=== PATIENT | male | born 1985 | race Caucasian/White ===

== ENCOUNTER 2019-11-13 13:36 | Emergency (ER) | payer SELFPAY ==
[2019-11-13 14:19] VITALS: BP 128/76; PULSE 63; RESP 16; TEMP 36.5; O2SAT 99; BMI 23.0
--- NOTE | 2019-11-13 15:23 | XR_ITS ---
WS: [id number] XR lumbar spine 2-3V* [id number] REASON FOR EXAM: injury FINDINGS: 5 functional lumbar vertebra as are noted. The disc spaces and vertebral bodies are normal. The lumbosacral angle was normal. Lamina, pedicles, spinous processes, and transverse processes are all normal. XR/XR lumbar spine 2-3V* [id number] IMPRESSION: Normal lumbar spine series.
--- NOTE | 2019-11-13 15:23 | XR_ITS ---
WS: [id number] XR thoracic spine 3V* [id number] REASON FOR EXAM: injury FINDINGS: The disc spaces and vertebral bodies are normal. There is no fractures or compression changes seen. No visible rib fractures are seen. XR/XR thoracic spine 3V* [id number] IMPRESSION: No definite fractures of the thoracic spine.
--- NOTE | 2019-11-13 15:23 | XR_ITS ---
WS: [id number] XR chest 1V portable [id number] REASON FOR EXAM: injury FINDINGS: The heart and mediastinal interfaces were normal. The lung ceja are well aerated no pneumothorax, pleural effusion, pulmonary edema, or contusions. The ribs show no gross fractures and the one view. The hilum and apices are normal. XR/XR chest 1V portable [id number] IMPRESSION: Negative chest
[2019-11-13 15:26] VITALS: BP 133/89; PULSE 106; RESP 18; TEMP 36.8; O2SAT 98
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
[2019-11-13] MEDS: HYDROcodone-acetaminophen 7.5-325 mg Tablet 1 TAB PO (15:45)
[2019-11-13 16:29] VITALS: BP 133/89; PULSE 106; RESP 18; TEMP 36.7; O2SAT 98
== END 2019-11-13 16:30 | disposition home or self-care (01) ==
PROVIDERS: Emergency Provider Nurse Practitioner Family; Family Provider Nurse Practitioner Family; PCP Nurse Practitioner Family
DX: T14.8XXA Other injury of unspecified body region, initial encounter (principal); M54.9 Dorsalgia, unspecified; F17.200 Nicotine dependence, unspecified, uncomplicated; V58.2XXA Person on outside of pick-up truck or van injured in noncollision transport accident in nontraffic accident, initial encounter
CPT/HCPCS: 71045; 72072; 72100; 99281; 99283

== ENCOUNTER → 2020-01-23 10:00 | Outpatient (BNVA) | payer SELFPAY | PROVIDERS: Family Provider Nurse Practitioner Family; PCP Nurse Practitioner Family; Visit Provider Nurse Practitioner | DX: R07.89 Other chest pain (principal) | CPT/HCPCS: 80053; 81000; 85025 ==

== ENCOUNTER 2020-07-29 22:51 | Emergency (ER) | payer SELFPAY ==
[2020-07-29 22:58] VITALS: BP 153/96; PULSE 110; RESP 18; TEMP 36.5; O2SAT 95; BMI 24.3
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
--- NOTE | 2020-07-29 23:11 | XR_ITS ---
WS: [id number] XR chest 1V portable [id number] REASON FOR EXAM: trauma FINDINGS: The heart and mediastinum are within normal limits. No active pulmonary parenchymal or pleural disease is identified. The bony thorax is intact. XR/XR chest 1V portable [id number] IMPRESSION: No acute chest abnormality.
--- NOTE | 2020-07-29 23:11 | XR_ITS ---
WS: [id number] XR shoulder RT min 2V* [id number] REASON FOR EXAM: trauma FINDINGS: Normal alignment of the acromioclavicular joint. Normal alignment of the glenohumeral joint. No fracture identified. No soft tissue abnormality noted. XR/XR shoulder RT min 2V* [id number] IMPRESSION: No acute abnormality identified.
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
[2020-07-29 23:44] LABS: Basophils % 0.2 %; Eosinophils # 0.1 10^3/uL (0.0-0.8); Eosinophils % 1.8 %; Hematocrit 41.7 % (42.0-52.0); Lymphocytes # 1.8 10^3/uL (0.8-4.8); Lymphocytes % 26.7 %; Mean Corpuscular HGB Conc 33.6 g/dL (30.0-36.0); Mean Corpuscular Hemoglobin 29.3 pg (28.0-34.0); Mean Corpuscular Volume 87.2 fL (80-94); Mean Platelet Volume 10.5 fL (7.4-10.4); Monocytes # 0.6 10^3/uL (0.2-0.9); Monocytes % 8.8 %; Neutrophils # 4.09 10^3/uL (1.8-7.7); Neutrophils % 62.3 %; Nucleated Red Blood Cells % 0 %; Platelet Count 217 10^3/cmm (130-400); Red Blood Count 4.78 10^6/uL (4.1-5.3); Red Cell Distribution Width 12.6 % (12.1-15.1); White Blood Count 6.6 10^3/uL (4.0-10.0)
[2020-07-29 23:55] LABS: Alanine Aminotransferase 18 U/L (0-41); Albumin Level 4.5 g/dL (3.5-5.2); Alkaline Phosphatase 73 IU/L (40-130); Anion Gap 13.8 (5-19); Aspartate Amino Transferase 24 U/L (0-40); Blood Urea Nitrogen 15 mg/dL (6-20); Calcium 9.4 mg/dL (8.5-10.5); Carbon Dioxide 26 mmol/L (22-29); Chloride 101 mmol/L (98-107); Globulin 2.8 g/dL (1.3-4.6); Glomerular Filtration Rate 96.6 mL/min (90-130); Glucose 153 mg/dL (65-115); Osmolality Calculated 288 mOsm/kg (285-295); Potassium 3.8 mmol/L (3.5-5.1); Sodium 137 mmol/L (136-145); Total Bilirubin 0.2 mg/dL (0.15-1.2); Total Protein 7.3 g/dL (6.6-8.7)
[2020-07-30 00:03] VITALS: BP 139/95; PULSE 72; O2SAT 97
[2020-07-30 00:48] VITALS: BP 139/95; PULSE 75; RESP 16; O2SAT 96
[2020-07-30 00:58] VITALS: BP 139/95; PULSE 75; O2SAT 95
== END 2020-07-30 00:59 | disposition home or self-care (01) ==
PROVIDERS: Emergency Provider Nurse Practitioner Family; PCP Nurse Practitioner Family
DX: S01.01XA Laceration without foreign body of scalp, initial encounter (principal); W22.8XXA Striking against or struck by other objects, initial encounter; F17.210 Nicotine dependence, cigarettes, uncomplicated
CPT/HCPCS: 12345; 70450; 71045; 72125; 72128; 73030; 80053; 85025; 99283

== ENCOUNTER 2020-08-01 19:11 | Emergency (ER) | payer SELFPAY ==
[2020-08-01 19:42] VITALS: BP 137/65; PULSE 82; RESP 18; TEMP 36.2; O2SAT 99; BMI 23.7
--- NOTE | 2020-08-01 20:24 | XRR_ITS ---
PROCEDURE INFORMATION: Exam: XR Chest, 1 View Exam date and time: 08/01/2020 8:58 PM Age: 35 years old Clinical indication: Shortness of breath; Additional info: Short of breath TECHNIQUE: Imaging protocol: XR of the chest Views: 1 view. COMPARISON: CR XR chest 1V portable [id number] 07/29/2020 11:13 PM FINDINGS: Lungs: Unremarkable. No consolidation. Pleural space: Unremarkable. No pleural effusion. No pneumothorax. Heart/Mediastinum: Unremarkable. No cardiomegaly. Bones/joints: Unremarkable. XR/XR chest 1V portable [id number] IMPRESSION: No acute findings.
--- NOTE | 2020-08-01 20:58 | ED_ITS ---
HPI - COVID General: Chief Complaint: COVID symptoms Stated Complaint: head injury Time Seen by Provider: 08/01/20 20:57 Source: patient Mode of arrival: ambulatory Limitations: no limitations Triage information: Has fever, cough or shortness of breath . No known COVID + exposure last 14 days History of Present Illness: HPI Narrative: 35-year-old male patient comes in with cough and shortness of breath. Patient states he feels like he cannot catch his breath. Patient appears well. Patient appears no acute distress. Patient is breathing without difficulty. Patient is able speak full sentences. Patient states exposure to COVID-19. COVID 19 common symptoms: positive dyspnea COVID Results: SARS-CoV-2 Antigen (Rapid) Negative (Negative) 08/01/20 21:20 08/01/20 Review of Systems General: Reports: 10 or more systems reviewed and unremarkable except in HPI and below Resp: Reports: dyspnea [facility] ED PFSH: Medical History (Updated 08/01/20 @ 22:06 by BRET Dee) Anxiety and depression Carpal tunnel syndrome, bilateral History of MRSA infection Nerve pain Surgical History (Updated 02/04/20 @ 23:30 by MARION Faust) History of appendectomy Family History Other Diabetes Heart disease Stroke Social History Smoking and tobacco status: current every day smoker Alcohol intake: never Lives independently: Yes Household members: spouse Housing: House Marital status: History of recent travel: No Physical Exam Const: COMMON NORMALS: no acute distress and patient oriented x3 GENERAL APPEARANCE: cooperative HENMT: COMMON NORMALS: normocephalic and Normal external nose present HEAD & SCALP: normal to inspection and normocephalic NOSE: Normal external nose present MOUTH: Normal oral and palatal mucosa present Eye: GENERAL EYE: appearance normal, both eyes and all related structures Neck/C-Spine: COMMON NORMALS: full ROM Chest: COMMONS NORMALS: normal inspection of the chest Resp: COMMON NORMALS: normal respiratory effort EFFORT & INSPECTION: Yes able to speak in complete sentences Cardio: COMMON NORMALS: regular rate and regular rhythm RATE: regular rate RHYTHM: regular rhythm GI: COMMON NORMALS: non-tender : COMMON NORMALS: Yes no CVA tenderness BLADDER/KIDNEY EXAM: Yes no CVA tenderness Back/Pelvis: COMMON NORMALS: no CVA tenderness and thoracic and lumbar spine normal to inspection Extremity: COMMON NORMALS: normal to inspection Neuro: COMMON NORMALS: patient oriented x3 and moves all extremities Psych: COMMON NORMALS: mental status grossly normal and cooperative Skin: NARRATIVE SKIN EXAM: Healing abrasion to the skin occiput of the scalp, and the upper mid back. Course Vital Signs: Vital signs: Vital Signs Temperature 97.2 F L 08/01/20 19:42 Pulse Rate 68 08/01/20 21:00 Respiratory Rate 24 H 08/01/20 21:00 Blood Pressure 123/80 08/01/20 21:00 Pulse Oximetry 94 08/01/20 21:00 MDM - COVID MDM Narrative Medical decision making narrative: Patient comes in with complaints of chest congestion and cough and concern for COVID-19. Patient reports he gets a feeling where he is short of breath at times. Patient appears well. Patient appears no acute distress. Lungs have good air movement throughout. Differential diagnosis includes COVID-19 infection, acute bronchitis, pneumonia. Chest x-ray noted no pneumonia. COVID-19 test was negative. Feel the patient probably has acute bronchitis we will go ahead and treat with azithromycin and dexamethasone. Patient will follow up with further treatment and evaluation as needed. Patient reported understanding. Lab Data Labs: Lab Results 08/01/20 Range/Units 21:20 SARS-CoV-2 Ag (Rapid) Negative (Negative) COVID Results: SARS-CoV-2 Antigen (Rapid) Negative (Negative) 08/01/20 21:20 08/01/20 Discharge Plan Discharge Patient Disposition: Home Clinical Impression: Bronchitis Condition: Stable Prescriptions: New dexamethasone 2 mg tablet 2 mg PO DAILY Qty: 4 RF: 0 azithromycin 250 mg tablet 250 mg PO DAILY 4 Days Qty: 4 RF: 0 No Action fluoxetine [Prozac] 10 mg capsule 10 mg PO DAILY 30 Days Qty: 30 RF: 2 buprenorphine HCl 8 mg tablet, sublingual 8 mg SUBLINGUAL TID RF: 0 gabapentin 600 mg tablet 300 mg PO TID RF: 0 Discharge Orders: Discharge Order (Routine); Ordered 08/01/20 Ordered By: Basim Guerra Discharge Diet: Usual diet Discharge Activity: Increase activity as tolerated Patient Instructions: Acute Bronchitis (ED) Activity Restrictions/Additional Instructions: Take medications as directed. Drink plenty of fluids. Use acetaminophen and ibuprofen for pain and discomfort. Follow-up with primary care in 1 week for recheck. Return to the emergency department for new concerns. Stand Alone Forms: Work/School Release Coding Level of Care Code ED Curing Press Operator for Edilia Fwjessee Exam Comprehensive
[2020-08-01 21:00] VITALS: BP 123/80; PULSE 68; RESP 24; O2SAT 94
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
[2020-08-01 21:34] VITALS: BP 114/78; PULSE 54; RESP 18; TEMP 37.1; O2SAT 98
[2020-08-01 21:54] LABS: SARS Covid-2 Antigen Negative (Negative)
[2020-08-01] MEDS: azithromycin 250 mg Tablet 500 MG PO (22:24)
[2020-08-01] MEDS: dexamethasone 4 mg Tablet 8 MG PO (22:24)
[2020-08-01 22:27] VITALS: BP 114/78; PULSE 54; RESP 18; O2SAT 98
== END 2020-08-01 22:30 | disposition home or self-care (01) ==
PROVIDERS: Emergency Provider Nurse Practitioner Family
DX: J40 Bronchitis, not specified as acute or chronic (principal); F17.210 Nicotine dependence, cigarettes, uncomplicated
CPT/HCPCS: 12345; 71045; 87426; 99282; 99283; J8540; Q0144

== ENCOUNTER 2020-11-07 12:25 | Outpatient (CLI) | payer SELFPAY ==
[2020-11-07 12:40] VITALS: BMI 24.1
--- NOTE | 2020-11-07 12:45 | USCV_ITS ---
Jessee Lynch Age: 35 Gender: M : 1985 Exam Date: 11/07/2020 12:04 Ordering Phys: Charmaine Gasca MD ([email or web address]) Technologist: Georgina Torres [place] [facility] [place]: Other chest pain BP: 128 / 70 HR: 84 Rhythm: Sinus Technical Quality: Adequate MEASUREMENTS (Male / Female) Normal Values 2D ECHO LV Diastolic Diameter PLAX 3.8 cm 4.2 - 5.9 / 3.9 - 5.3 cm LV Systolic Diameter PLAX 2.3 cm LV Chamber Size 3.9 cm IVS Diastolic Thickness 1.0 cm 0.6 - 1.0 / 0.6 - 0.9 cm IVS Systolic Thickness 1.6 cm LVPW Diastolic Thickness 2.2 cm 0.6 - 1.0 / 0.6 - 0.9 cm LVPW Systolic Thickness 1.7 cm RV Chamber Size 3.6 cm LVOT Diameter 2.1 cm LV Ejection Fraction 2D Teich 73.1 % LV Ejection Fraction MOD 2C 47.2 % LV Ejection Fraction 2C AL 45.0 % LA Diameter 2.9 cm LA Width 2.2 cm LA Height 4.0 cm RA Width 2.7 cm RA Height 4.3 cm Aorta at Sinotubular Diameter 3.2 cm M-MODE LV Diastolic Diameter MM 5.2 cm 4.2 - 5.9 / 3.9 - 5.3 cm LV Systolic Diameter MM 3.8 cm LV Ejection Fraction MM Teich 54.0 % IVS Diastolic Thickness MM 0.6 cm 0.6 - 1.0 / 0.6 - 0.9 cm IVS Systolic Thickness MM 1.1 cm LVPW Diastolic Thickness MM 0.9 cm 0.6 - 1.0 / 0.6 - 0.9 cm LVPW Systolic Thickness MM 1.2 cm Aortic Annulus Diameter 3.2 cm LA Ao Ratio MM 1.0 MV E Point Septal Separation 0.5 cm DOPPLER AV Peak Velocity 127.0 cm/s LVOT Peak Velocity 101.0 cm/s AV Area Cont Eq vti 3.1 cm squared AV Area Cont Eq pk 2.7 cm squared MV Area PHT 3.3 cm squared Mitral E to A Ratio 1.7 MV E' Velocity 53.0 cm/s Mitral E to MV E' Ratio 4.4 Mitral E to LV E' Lateral Ratio 4.2 Mitral E to LV E' Septal Ratio 4.7 TR Peak Velocity 220.5 cm/s TR Peak Gradient 19.4 mmHg TV Peak E Velocity 87.0 cm/s Right Atrial Pressure 3.0 mmHg Pulmonary Artery Systolic Pressu 22.4 mmHg PV Peak Velocity 81.0 cm/s RV Acceleration Time 0.2 s RV Ejection Time 0.4 s RV AcT/ET 0.6 FINDINGS Left Ventricle Normal left ventricular size and systolic function, EF 63 %. No regional wall motion abnormalities. Right Ventricle Normal right ventricular size and systolic function. Right Atrium Normal chamber size with no intracardiac masses. Left Atrium The left atrium is normal in size. Mitral Valve No gross abnormalities noted . Aortic Valve Patient be tricuspid with no gross abnormalities Tricuspid Valve No gross abnormalities noted Pulmonic Valve Structurally normal pulmonic valve without significant stenosis. There is no pulmonic regurgitation. Pericardium Normal pericardium without effusion. Aorta Normal ascending aorta dimension. CONCLUSIONS Normal left ventricular size and systolic function, EF 63 %. No regional wall motion abnormalities. Normal cardiac chamber sizes. No intracardiac shunts, based on color flow Doppler examination. No gross valvular abnormalities noted. No intracardiac masses No significant pericardial effusion No previous study is available for comparison. Dr Charmaine Gasca MD FAC (Electronically Signed) Final Date: 07 November 2020 14:09 S
[2020-11-07 13:15] VITALS: BP 186/87; PULSE 95
--- NOTE | 2020-11-07 13:45 | ECG_ITS ---
[facility] Test Date: 2020-11-07 Pat Name: Jessee Lynch Department: Room: Gender: Male Assurance Manager: : 1985 Requested By: Charmaine Gasca Order Number: [id number] Dannie MD: Charmaine Gasca M.D. Interpretive Statements NAME OF STUDY: TREADMILL STRESS TEST INDICATION: Chest Pain, PROCEDURE: At the baseline, the patient's blood pressure was 134/86 with a heart rate of 81. The baseline electrocardiogram showed normal sinus rhythm with normal ST-Ts. No acute ST-T changes.. The patient exercised for 11 minutes on a standard Ihsan protocol. Patient attained a maximum heart rate of 160 beats per minute( 86 % of the maximum predicted heart rate) with a blood pressure at the peak exercise of 217/65 mm Hg. The EKG at the peak exercise revealed no significant changes. Patient did not have any chest pain or any significant cardiac arrhythmias with the exercise During the recovery phase, there were no new changes. Blood pressure at the end of the recovery phase was 186/87 mm Hg with a heart rate of 96 per minute. CONCLUSION: 1. Normal EKG response to treadmill exercise 2. No exercise-induced chest pain or cardiac arrhythmia 3. Good exercise tolerance , attained a maximum of 13.5 METs Electronically Signed On 11-09-2020 15:12:16 VENDING STAND SUPERVISOR by Charmaine Gasca M.D. [id number]
== END 2020-11-07 12:26 | disposition home or self-care (01) ==
LOC: CDL 12:28
PROVIDERS: PCP Nurse Practitioner; Visit Provider Internal Medicine Cardiovascular Disease
DX: R07.89 Other chest pain (principal)
CPT/HCPCS: 93017; 93306

== ENCOUNTER 2021-04-21 20:35 | Emergency (ER) | payer SELFPAY | END 2021-04-21 21:50 | LOC: ER 21:37 | PROVIDERS: Emergency Provider Family Medicine; PCP Nurse Practitioner | DX: Z53.21 Procedure and treatment not carried out due to patient leaving prior to being seen by health care provider (principal) | CPT/HCPCS: 80053; 81000; 85025 ==

== ENCOUNTER 2021-04-22 09:50 | Outpatient (CLI) | payer SELFPAY ==
--- NOTE | 2021-04-22 09:30 | US_ITS ---
WS: [id number] ULTRASOUND ABDOMEN LIMITED CLINICAL INFORMATION: Z87.428 - Personal history of other specified conditions COMPARISON: None. FINDINGS: Liver Size: Normal. Craniocaudal length: 15.1 cm. Echogenicity: Normal. Surface nodularity: None. Mass (size and location): None. Bile ducts Intrahepatic ducts: Normal. Common bile duct diameter: 0.4 cm. Gallbladder Normal. Gallstones: None. Gallbladder sludge: None. Gallbladder wall thickening: None. Pericholecystic fluid: None. Sonographic Daley sign: Absent. Pancreas Normal as visualized. Right kidney: Normal. Hydronephrosis: None. Size: 10.4 cm x 4.4 cm x 4.2 cm. Abdominal aorta and IVC Visualized portions are normal. Ascites: None. US/US abdomen limited [id number] IMPRESSION: Normal abdominal ultrasound
== END 2021-04-22 09:51 | disposition home or self-care (01) ==
LOC: RAD 09:53
PROVIDERS: Visit Provider Nurse Practitioner Family
DX: Z87.898 Personal history of other specified conditions (principal)
CPT/HCPCS: 76705

== ENCOUNTER 2021-04-22 10:54 | Emergency (ER) | payer SELFPAY ==
[2021-04-22 12:21] VITALS: BP 155/113; PULSE 98; RESP 16; TEMP 36.9; O2SAT 96; BMI 23.7
[2021-04-22 12:21] LABS: Basophils % 0.2 %; Eosinophils # 0.1 10^3/uL (0.0-0.8); Eosinophils % 0.7 %; Hematocrit 46.1 % (42.0-52.0); Hemoglobin 15.8 g/dL (11.7-16.6); Lymphocytes # 3.7 10^3/uL (0.8-4.8); Lymphocytes % 26.9 %; Mean Corpuscular HGB Conc 34.3 g/dL (30.0-36.0); Mean Corpuscular Hemoglobin 29.6 pg (28.0-34.0); Mean Corpuscular Volume 86.3 fL (80-94); Mean Platelet Volume 10.7 fL (7.4-10.4); Monocytes # 1.2 10^3/uL (0.2-0.9); Monocytes % 8.8 %; Neutrophils # 8.64 10^3/uL (1.8-7.7); Nucleated Red Blood Cells % 0 %; Platelet Count 248 10^3/cmm (130-400); Red Blood Count 5.34 10^6/uL (4.1-5.3); Red Cell Distribution Width 12.2 % (12.1-15.1); White Blood Count 13.7 10^3/uL (4.0-10.0)
[2021-04-22 12:30] LABS: Alanine Aminotransferase 15 U/L (0-41); Albumin Level 4.8 g/dL (3.5-5.2); Alkaline Phosphatase 73 IU/L (40-130); Anion Gap 12.7 (5-19); Aspartate Amino Transferase 13 U/L (0-40); Blood Urea Nitrogen 11 mg/dL (6-20); Calcium 8.8 mg/dL (8.5-10.5); Carbon Dioxide 29 mmol/L (22-29); Chloride 100 mmol/L (98-107); Globulin 2.4 g/dL (1.3-4.6); Glucose 100 mg/dL (65-115); Lipase 22 U/L (13-60); Osmolality Calculated 285 mOsm/kg (285-295); Potassium 3.7 mmol/L (3.5-5.1); Sodium 138 mmol/L (136-145); Total Bilirubin 0.5 mg/dL (0.15-1.2); Total Protein 7.2 g/dL (6.6-8.7)
== END 2021-04-22 17:26 | disposition left against medical advice (07) ==
LOC: ER 11:39
PROVIDERS: Physician Assistant; Emergency Provider Family Medicine
DX: R10.11 Right upper quadrant pain (principal); R19.5 Other fecal abnormalities; Z53.21 Procedure and treatment not carried out due to patient leaving prior to being seen by health care provider
CPT/HCPCS: 36415; 80053; 83690; 85025

== ENCOUNTER → 2021-04-23 13:49 | Outpatient (BNVA) | payer SELFPAY | PROVIDERS: Visit Provider Surgery | DX: Z20.822 Contact with and (suspected) exposure to COVID-19 (principal); R10.9 Unspecified abdominal pain | CPT/HCPCS: 87635 ==

== ENCOUNTER → 2021-04-28 07:57 | Outpatient (BNVA) | payer SELFPAY | PROVIDERS: Visit Provider Nurse Practitioner Family | DX: K92.1 Melena (principal) | CPT/HCPCS: 82272 ==

== ENCOUNTER 2021-04-30 09:10 | Day surgery (SDC) | payer SELFPAY ==
--- NOTE | 2021-04-30 09:22 | ANES.PREANE2 ---
Pre-Anesthetic Assessment Pre-Anesthetic Assessment: Height/Weight: Height 1.8 m Weight 77.111 kg Preop Diagnosis: abdominal pian Proposed Procedure: Operation Date: 04/30/21 10:30 Proposed Procedures p EGD 19766 r10.9(Not Applicable) - Jesus Pacheco MD Familial anesthetic complications: none Last intake: > 8 hrs Social: Social History: Tobacco and No alcohol Exam: Pre-Anes Outpt Exam: alert, oriented x 3, clear to auscultation bilaterally and regular rate & rhythm Airway: Cervical ROM: WNL MP: 2 Dentition: Other (no teeth) CV/HEM: Comments: chest pain - negative stress test CONCLUSIONS Normal left ventricular size and systolic function, EF 63 %. No regional wall motion abnormalities. Normal cardiac chamber sizes. No intracardiac shunts, based on color flow Doppler examination. No gross valvular abnormalities noted. No intracardiac masses No significant pericardial effusion No previous study is available for comparison. Neuropsych: Neuropsych: Anxiety (severe - took klonopin yesterday) Comments: recently stopped subutex a few weeks ago Anesthetic Plan: ASA status: 2 Anesthesia: MAC Risk of > 500 ml blood loss (7ml/kg in children): No PFSH Anesthesia PFSH: Medical History Anxiety and depression Carpal tunnel syndrome, bilateral History of MRSA infection Nerve pain Pericardial effusion Surgical History History of appendectomy Family History Grandfather CAD (coronary artery disease) Lung disease TB Grandmother CAD (coronary artery disease) Diabetes Stroke Cancer Dementia Family/Other CAD (coronary artery disease) Other Heart disease Denies family history of Clotting disorder Chronic kidney disease (CKD) Suicide Anesthesia complication Bleeding disorder Social History Smoking and tobacco status: current every day smoker Alcohol intake: never Lives independently: Yes Household members: spouse Housing: House Marital status: History of recent travel: No Data Anesthesia Cardiac Studies: No Data to Display
[2021-04-30 09:42] VITALS: BP 138/33; PULSE 74; RESP 18; TEMP 37.1; O2SAT 98
[2021-04-30] MEDS: sodium chloride 0.9% 1,000 ML 30 ML IV (10:04)
--- NOTE | 2021-04-30 10:58 | W.PM.OPSUD ---
Surgery/Procedure H&P Update DATE OF PROCEDURE: April 30, 2021 DATE H&P PERFORMED: 04/23/21 H&P UPDATE INFORMATION: I have reviewed H&P completed within last 30 days, I have examined patient prior to procedure and No changes to prior documentation PREOP DIAGNOSIS: Black stool PRIMARY INDICATION FOR PROCEDURE: The same PLANNED PROCEDURE: Operation Date: 04/30/21 10:30 Proposed Procedures p EGD 25298 r10.9(Not Applicable) - Jesus Pacheco MD
[2021-04-30 11:17] VITALS: BP 113/75; PULSE 80; RESP 16; TEMP 36.3; O2SAT 94
[2021-04-30 11:41] VITALS: BP 133/99; PULSE 69; RESP 16; TEMP 36.8; O2SAT 98
--- NOTE | 2021-04-30 15:00 | ANE.PACU2 ---
Inpatient post-anesthesia follow up: Airway intact: Yes Vital signs: Temperature 98.2 F Pulse Rate 69 Respiratory Rate 16 Blood Pressure 133/99 Pulse Oximetry 98 Oxygen Delivery Me thod Room Air Oxygen Flow Rate 2 Fraction of Inspir ed Oxygen Nausea and vomiting: No Pain level: 1 Mental status: Baseline
[2021-05-01 06:49] LABS: H. Pylori / CLO Test Negative
== END 2021-04-30 11:55 | disposition home or self-care (01) ==
PROVIDERS: Visit Provider Surgery
PROC: 0DJ08ZZ Inspection of Upper Intestinal Tract, Via Natural or Artificial Opening Endoscopic (ICD-10-PCS; CPT 43235; principal; 2021-04-30 10:30)
DX: R10.9 Unspecified abdominal pain (principal); R19.5 Other fecal abnormalities; K29.70 Gastritis, unspecified, without bleeding; F41.9 Anxiety disorder, unspecified; Z86.14 Personal history of Methicillin resistant Staphylococcus aureus infection; Z82.49 Family history of ischemic heart disease and other diseases of the circulatory system; Z83.3 Family history of diabetes mellitus; F17.210 Nicotine dependence, cigarettes, uncomplicated
CPT/HCPCS: 43239; 87077; 96360; 96361; J2250; J2704; J7030

== ENCOUNTER → 2022-04-06 14:01 | Outpatient (BNVA) | payer SELFPAY | PROVIDERS: Visit Provider Nurse Practitioner Family | DX: R10.11 Right upper quadrant pain (principal); G89.29 Other chronic pain; F19.11 Other psychoactive substance abuse, in remission; R10.819 Abdominal tenderness, unspecified site | CPT/HCPCS: 80053; 81000; 85025 ==

== ENCOUNTER → 2022-11-26 10:58 | Outpatient (BNVA) | payer SELFPAY | PROVIDERS: Visit Provider Nurse Practitioner | DX: R53.83 Other fatigue (principal); E55.9 Vitamin D deficiency, unspecified; Z86.19 Personal history of other infectious and parasitic diseases | CPT/HCPCS: 80053; 82306; 82607; 84403; 84443; 85025; 85651; 86003; 86008; 86140 ==

== ENCOUNTER 2023-10-06 10:28 | Emergency (ER) | payer MEDICAID, SELFPAY ==
--- NOTE | 2023-10-06 10:33 | ECG_ITS ---
[facility] Test Date: 2023-10-06 Pat Name: Jessee Lynch Department: Room: Gender: Male Township Supervisor: : 1985 Requested By: Jesús Haney Order Number: [id number] Dannie MD: Charmaine Gasca M.D. Measurements Intervals [place] Rate: 73 P: 76 CA: 166 QRS: 90 QRSD: 92 T: 61 QT: 382 QTc: 423 Interpretive Statements SINUS RHYTHM WITH SINUS ARRHYTHMIA POSSIBLE LEFT ATRIAL ENLARGEMENT [-0.1mV P-WAVE IN V1/V2] Compared to ECG 02/01/2019 11:14:43 No significant changes Electronically Signed On 10-06-2023 21:48:41 COMPUTER FORWARDING SYSTEM MARKUP CLERK by Charmaine Gasca M.D. [id number]
[2023-10-06 10:34] VITALS: BP 138/94; PULSE 78; RESP 16; TEMP 36.4; O2SAT 98; BMI 23.0
--- NOTE | 2023-10-06 10:42 | XRR_ITS ---
PROCEDURE INFORMATION: Exam: XR Chest Exam date and time: 10/06/2023 11:04 AM Age: 38 years old Clinical indication: Cough and dyspnea; Additional info: Dyspnea/cough TECHNIQUE: Imaging protocol: Radiologic exam of the chest. Views: 1 view. COMPARISON: CR XR chest 1V portable [id number] 08/01/2020 8:52 PM FINDINGS: Lungs: No focal consolidation. Pleural spaces: No pleural effusion. No pneumothorax. Heart/Mediastinum: No cardiomegaly. Bones/joints: No acute findings. XR/XR chest 1V portable [id number] IMPRESSION: No acute findings.
--- NOTE | 2023-10-06 10:43 | ED_ITS ---
HPI - Chest Pain 2 General: Chief Complaint: Chest Pain Stated Complaint: sob, chest pain Time Seen by Provider: 10/06/23 10:30 Source: patient Mode of arrival: ambulatory History of Present Illness: 38-year-old male presents emergency room with complaint of chest pain. Intermittently had this for a year. Seems to be more epigastric pain radiating up into his chest. Has been seen for this before by other doctors she has had previous ER visits no significant findings. He did have a workup for gallbladder which was evidently negative. MD complaint: chest pain Onset (ago): year(s) (1) Timing of current episode: episodic Prior episodes: Yes Onset: during rest Pain location: left chest Pain radiation: none Severity: mild Quality: tightness and aching Relieving factors: nothing Exacerbating factors: nothing Associated symptoms: Reports abdominal pain; Deny diaphoresis, dyspnea, fever(s), leg edema, nausea, palpitations, sense of impending doom, syncope or vomiting Review of Systems 2 Const: Denies: fever(s), chills or diaphoresis Card: Reports: chest pain; Denies: palpitations or syncope Resp: Denies: dyspnea GI: Reports: abdominal pain; Denies: nausea or vomiting : Denies: dysuria, urinary frequency or urinary urgency Musc: Denies: neck pain or back pain Skin/Breast: Denies: rash PFSH ED 2 PFSH: Medical History History of tick-borne relapsing fever Pericardial effusion History of MRSA infection Carpal tunnel syndrome, bilateral Nerve pain Anxiety and depression Surgical History History of appendectomy Family History Grandfather CAD (coronary artery disease) Lung disease TB Grandmother CAD (coronary artery disease) Diabetes Stroke Cancer Dementia Family/Other CAD (coronary artery disease) Other Heart disease Denies family history of Clotting disorder Chronic kidney disease (CKD) Suicide Anesthesia complication Bleeding disorder Social History Smoking and tobacco/nicotine status: former use of tobacco/nicotine Second hand smoke exposure: No Alcohol intake: unknown Substance/Drug Use: unknown Adopted: No Caregiver/support person: No Lives independently: Yes Household members: spouse Housing: House Marital status: service: No Do you think of yourself as: Straight/Heterosexual Current gender identity: Male Physical Exam 2 Const: COMMON NORMALS: no acute distress GENERAL APPEARANCE: cooperative and comfortable ORIENTATION/CONSCIOUSNESS: Yes awake, Yes oriented to person, Yes oriented to place and Yes oriented to time HENMT: COMMON NORMALS: normocephalic, atraumatic and hearing grossly normal bilaterally HEAD & SCALP: normocephalic and atraumatic Resp: COMMON NORMALS: normal respiratory effort, No retractions, No use of accessory muscles and clear to auscultation bilaterally AUSCULTATION: clear to auscultation bilaterally Cardio: COMMON NORMALS: regular rate, regular rhythm and No murmurs present (Cardio) RATE: regular rate RHYTHM: regular rhythm GI: COMMON NORMALS: Soft to palpation and No hepatosplenomegaly present A USCULTATION: Yes normoactive bowel sounds PALPATION: Yes Soft to palpation, No Tenderness to palpation present (GI), No Guarding due to palpation present (GI) and Yes No hepatosplenomegaly present Extremity: COMMON NORMALS: normal to inspection, capillary refill normal, no clubbing, cyanosis or edema, no calf tenderness and no pedal edema Neuro: SENSORIUM/ORIENTATION: Yes oriented to person, Yes oriented to place and Yes oriented to time Skin: COMMON NORMALS: no rashes or lesions noted GENERAL SKIN EXAM: no rashes or lesions noted Course 2 Vital Signs: Vital signs: Vital Signs Temperature 97.6 F 10/06/23 10:34 Pulse Rate 78 10/06/23 10:34 Respiratory Rate 16 10/06/23 10:34 Blood Pressure 138/94 10/06/23 10:34 Pulse Oximetry 98 10/06/23 10:34 MDM - Chest Pain Medical Decision Making Labs imaging and EKG reviewed no acute changes on EKG. Troponin normal he said this. For an extended period of time recommend mended start on proton pump inhibitor Protonix 40 mg twice daily for 10 days then daily after that follow-up with his primary care doctor return if is further problems. Medical Records I reviewed the patient's medical records. Lab Data I reviewed the patient's lab results. 10/06/23 10:55 10/06/23 10:55 Laboratory Results WBC 8.92 10^3/uL (3.29-11.43) 10/06/23 10:55 RBC 5.16 10^6/uL (3.85-5.65) 10/06/23 10:55 Hgb 15.90 g/dL (11.27-16.99) 10/06/23 10:55 Hct 45.7 % (37-53) 10/06/23 10:55 MCV 88.6 fl (82-101) 10/06/23 10:55 MCH 30.8 pg (27-33) 10/06/23 10:55 MCHC 34.8 g/dL (30-55) 10/06/23 10:55 RDW 12.1 % (12.1-15.1) 10/06/23 10:55 Plt Count 213 10^3/cmm (157-399) 10/06/23 10:55 MPV 10.2 fL (7.4-10.4) 10/06/23 10:55 Neut % (Auto) 72.3 % 10/06/23 10:55 Lymph % (Auto) 18.9 % 10/06/23 10:55 [place] % (Auto) 6.7 % 10/06/23 10:55 Eos % (Auto) 1.6 % 10/06/23 10:55 Baso % (Auto) 0.2 % 10/06/23 10:55 Neut # (Auto) 6.44 10^3/uL (1.8-7.7) 10/06/23 10:55 Lymph # (Auto) 1.7 10^3/uL (0.8-4.8) 10/06/23 10:55 [place] # (Auto) 0.6 10^3/uL (0.2-0.9) 10/06/23 10:55 Eos # (Auto) 0.1 10^3/uL (0.0-0.8) 10/06/23 10:55 Baso # (Auto) 0.0 10^3/uL (0.0-0.1) 10/06/23 10:55 Nucleated RBC % (auto) 0 % 10/06/23 10:55 Nucleated RBCs # 0.0 /100WBC 10/06/23 10:55 Sodium 141 mmol/L (136-145) 10/06/23 10:55 Potassium 4.2 mmol/L (3.5-5.1) 10/06/23 10:55 Chloride 103 mmol/L (98-107) 10/06/23 10:55 Carbon Dioxide 29 mmol/L (22-29) 10/06/23 10:55 Anion Gap 13.2 (5-19) 10/06/23 10:55 BUN 13 mg/dL (6-20) 10/06/23 10:55 Creatinine 1.0 mg/dL (0.7-1.2) 10/06/23 10:55 GFR Calculation 84.1 mL/min (90-130) L 10/06/23 10:55 Glucose 119 mg/dL (65-115) H 10/06/23 10:55 Calculated Osmolality 293 mOsm/kg (285-295) 10/06/23 10:55 Calcium 9.5 mg/dL (8.5-10.5) 10/06/23 10:55 Total Bilirubin 0.7 mg/dL (0.15-1.2) 10/06/23 10:55 AST 23 U/L (0-40) 10/06/23 10:55 ALT 35 U/L (0-41) 10/06/23 10:55 Alkaline Phosphatase 56 U/L (40-130) 10/06/23 10:55 Troponin T Baseline < 6 ng/L (0-15) 10/06/23 10:55 Total Protein 7.3 g/dL (6.6-8.7) 10/06/23 10:55 Albumin 4.8 g/dL (3.5-5.2) 10/06/23 10:55 Globulin 2.5 g/dL (1.3-4.6) 10/06/23 10:55 Lipase 27 U/L (13-60) 10/06/23 10:55 All radiology interpretation(s) finalized by discharge Discharge Plan Discharge Patient Disposition: Home Clinical Impression: Gastroesophageal reflux disease Condition: Stable Prescriptions: New Protonix 40 mg tablet,delayed release (DR/EC) 40 mg PO BID 10 Days Qty: 40 0RF Rx Instructions: Twice daily x 10 days then daily No Action buprenorphine HCl 8 mg tablet, sublingual 8 mg SUBLINGUAL Q7D BC Pain Relief 845-65 mg Powder In Packet 1 ea PO DAILY PRN (Reason: Migraine Headache) Discharge Orders: Discharge ED (Routine); Ordered 10/06/23 Ordered By: Jesús Mayers Discharge Diet: As Directed Patient Instructions: Diet for Stomach Ulcers and Gastritis (ED), GERD (Gastroesophageal Reflux Disease) (ED), Opioid Safety, Pain Management Coding Level of Care Code ED Pantry Worker for Edilia Wall
[2023-10-06 11:08] LABS: Basophils % 0.2 %; Eosinophils # 0.1 10^3/uL (0.0-0.8); Eosinophils % 1.6 %; Hematocrit 45.7 % (37-53); Lymphocytes # 1.7 10^3/uL (0.8-4.8); Lymphocytes % 18.9 %; Mean Corpuscular HGB Conc 34.8 g/dL (30-55); Mean Corpuscular Hemoglobin 30.8 pg (27-33); Mean Corpuscular Volume 88.6 fl (82-101); Mean Platelet Volume 10.2 fL (7.4-10.4); Monocytes # 0.6 10^3/uL (0.2-0.9); Monocytes % 6.7 %; Neutrophils # 6.44 10^3/uL (1.8-7.7); Neutrophils % 72.3 %; Nucleated Red Blood Cells % 0 %; Platelet Count 213 10^3/cmm (157-399); Red Blood Count 5.16 10^6/uL (3.85-5.65); Red Cell Distribution Width 12.1 % (12.1-15.1); White Blood Count 8.92 10^3/uL (3.29-11.43)
--- NOTE | 2023-10-06 11:10 | PC.PHAR ---
pt states he takes care of his own medications-pt states he uses his wifes buprenorphine 8mg about once a week states it got to expensive for both of them to be on it so he just uses hers once a week-pt states he no longer takes cymbalta 20mg daily rx filled 07/08/23 30d/s states has but never took-pt states the venlafaxine 50mg bid written 12/16/22 was dced-pt states he hasnt had his testosterone cypionate 200mg/ml [id number] since july states he feels like it wasnt working anymore-
[2023-10-06 11:24] LABS: Alanine Aminotransferase 35 U/L (0-41); Albumin Level 4.8 g/dL (3.5-5.2); Alkaline Phosphatase 56 U/L (40-130); Anion Gap 13.2 (5-19); Aspartate Amino Transferase 23 U/L (0-40); Blood Urea Nitrogen 13 mg/dL (6-20); Calcium 9.5 mg/dL (8.5-10.5); Carbon Dioxide 29 mmol/L (22-29); Chloride 103 mmol/L (98-107); Globulin 2.5 g/dL (1.3-4.6); Glomerular Filtration Rate 84.1 mL/min (90-130); Glucose 119 mg/dL (65-115); Lipase 27 U/L (13-60); Osmolality Calculated 293 mOsm/kg (285-295); Potassium 4.2 mmol/L (3.5-5.1); Sodium 141 mmol/L (136-145); Total Bilirubin 0.7 mg/dL (0.15-1.2); Total Protein 7.3 g/dL (6.6-8.7)
[2023-10-06 11:27] LABS: Troponin(5th) Baseline < 6 ng/L (0-15)
== END 2023-10-06 12:30 | disposition home or self-care (01) ==
PROVIDERS: Emergency Provider Family Medicine
DX: K21.9 Gastro-esophageal reflux disease without esophagitis (principal); Z87.891 Personal history of nicotine dependence
CPT/HCPCS: 71045; 80053; 83690; 84484; 85025; 93005; 99285

== ENCOUNTER 2023-10-31 08:09 | Outpatient (CLI) | payer MEDICAID, SELFPAY ==
--- NOTE | 2023-10-31 08:13 | US_ITS ---
WS: [id number] ABDOMINAL ULTRASOUND LIMITED REASON FOR VISIT: RUQ PAIN TECHNIQUE: Grayscale and Doppler ultrasound examination of the abdomen. FINDINGS: Pancreas: No pancreatic mass or pancreatic calcification. No dilatation of the pancreatic duct. Abdominal aorta and IVC: Normal caliber. Liver: Liver measures 13.2 cm in length. Normal echogenicity and no focal lesion. Normal portal venou s blood flow. Gallbladder: Gallbladder wall thickness measures 0.2 mm. No calculi. Right kidney: Right kidney measures 9.8 cm x 4.8 cm x 5.3 cm. Right kidney cortex measures 1.0 cm. No mass, calculus, or hydronephrosis. Normal blood flow. No ascites. IMPRESSION: No significant abnormality.
== END 2023-10-31 08:10 | disposition home or self-care (01) ==
LOC: RAD 08:09
PROVIDERS: Visit Provider Internal Medicine
DX: R10.11 Right upper quadrant pain (principal)
CPT/HCPCS: 76705

== ENCOUNTER → 2023-11-11 11:00 | Outpatient (BNVA) | payer MEDICAID, SELFPAY | PROVIDERS: Visit Provider Nurse Practitioner Family | DX: R10.9 Unspecified abdominal pain (principal); G89.29 Other chronic pain; R33.9 Retention of urine, unspecified; R79.89 Other specified abnormal findings of blood chemistry; M25.50 Pain in unspecified joint; K59.00 Constipation, unspecified | CPT/HCPCS: 80053; 80074; 82040; 83036; 84153; 84270; 84403; 84443; 85025; 85651; 86140; 86160; 86162; 86235; 86255; 86376; 86431; 87806 ==

== ENCOUNTER 2023-12-01 15:39 | Outpatient (CLI) | payer MEDICAID, SELFPAY ==
--- NOTE | 2023-12-01 16:00 | CT_ITS ---
WS: [id number] CT ABDOMEN AND PELVIS WITH CONTRAST HISTORY: R10.9 - Unspecified abdominal pain TECHNIQUE: Imaging performed of the abdomen and pelvis with IV contrast. Single phase imaging of the abdomen. Coronal and sagittal reformats are submitted. All CT scans at [facility] use at [address] one of these dose optimization techniques: automated exposure control; mA and/or kV adjustment per patient size (includes targeted exams where dose is matched to clinical indication); or iterative re construction. IV CONTRAST: Omnipaque 350; 100 mL IV. Oral contrast: Yes. DLP: 359.48 mGy.cm COMPARISON: None available. Lower thorax: Lung bases are clear. Heart is normal size. Small hiatal hernia. Liver/biliary system: Small to characterize hypodensity LEFT lobe of the liver. Otherwise negative. N ormal portal vein. Gallbladder: Moderately contracted gallbladder. No adjacent inflammation. Pancreas: Normal size pancreas and pancreatic duct. No adjacent inflammation. Spleen: Normal size spleen. No mass or infarct. Adrenal glands: Normal. Right kidney: Normal. Left kidney: Normal. Aorta: Normal. Lymphadenopathy: None. Free fluid: None. GI tract: Normal stomach. No small bowel obstruction. Prior appendectomy. Moderate diffuse constipati on and obstipation. No obstruction or mass identified. Abdominal wall: Unremarkable abdominal wall. No hernia. Pelvis: No free fluid or adenopathy within the pelvis. Bones: Unremarkable. IMPRESSION: 1. Moderate constipation and obstipation. No obstruction. 2. Prior appendectomy. 3. No adenopathy. 4. Normal spleen.
[2023-12-01] MEDS: iohexol 350 mg/mL 500 mL Btl (per mL) PO (16:40)
[2023-12-01] MEDS: iohexol 350 mg/mL 500 mL Btl (per mL) IV (16:57)
== END 2023-12-01 15:40 | disposition home or self-care (01) ==
LOC: RAD 15:40
PROVIDERS: PCP Nurse Practitioner Family; Visit Provider Nurse Practitioner Family
DX: K59.00 Constipation, unspecified (principal); R33.9 Retention of urine, unspecified
CPT/HCPCS: 74177; Q9967

== ENCOUNTER 2024-03-04 21:08 | Emergency (ER) | payer MEDICAID, SELFPAY ==
[2024-03-04 21:12] VITALS: BP 160/100; PULSE 71; RESP 16; TEMP 36.6; O2SAT 100; BMI 23.7
--- NOTE | 2024-03-04 21:17 | CTR_ITS ---
PROCEDURE INFORMATION: Exam: CT Head Without Contrast Exam date and time: 03/04/2024 10:03 PM Age: 39 years old Clinical indication: Pain; Headache; Patient HX: C/O occipital HEADLEY. ; Additional info: Head ache TECHNIQUE: Imaging protocol: Computed tomography of the head without contrast. Radiation optimization: All CT scans at this facility use at least one of these dose optimization techniques: automated exposure control; mA and/or kV adjustment per patient size (includes targeted exams where dose is matched to clinical indication); or iterative reconstruction. COMPARISON: CT head wo con* [id number] 07/30/2020 12:10 AM RADIATION DOSE METRICS: Total DLP (mGy-cm): 1053.98 FINDINGS: Brain: Normal. No hemorrhage. Unremarkable white matter. No mass effect. Cerebral ventricles: No ventriculomegaly. Paranasal sinuses: Visualized sinuses are unremarkable. No fluid levels. Mastoid air cells: Visualized mastoid air cells are well aerated. Bones: Unremarkable. No acute fracture. Soft tissues: Unremarkable. CT/CT head wo con* [id number] IMPRESSION: No acute intracranial abnormality.
[2024-03-04 21:52] LABS: Basophils % 0.5 %; Eosinophils # 0.3 10^3/uL (0.0-0.8); Eosinophils % 4.2 %; Hematocrit 44.9 % (37-53); Lymphocytes # 2.4 10^3/uL (0.8-4.8); Lymphocytes % 36.9 %; Mean Corpuscular HGB Conc 35.2 g/dL (30-55); Mean Corpuscular Hemoglobin 30.9 pg (27-33); Mean Corpuscular Volume 87.9 fl (82-101); Mean Platelet Volume 10.3 fL (7.4-10.4); Monocytes # 0.5 10^3/uL (0.2-0.9); Monocytes % 7.3 %; Neutrophils # 3.29 10^3/uL (1.8-7.7); Neutrophils % 50.9 %; Nucleated Red Blood Cells % 0 %; Platelet Count 237 10^3/cmm (157-399); Red Blood Count 5.11 10^6/uL (3.85-5.65); Red Cell Distribution Width 12.5 % (12.1-15.1); White Blood Count 6.45 10^3/uL (3.29-11.43)
--- NOTE | 2024-03-04 22:03 | ED_ITS ---
HPI - Headache 2 General: Chief Complaint: Headache Stated Complaint: Pressure in back of head vision blurry now Time Seen by Provider: 03/04/24 21:16 History of Present Illness: 39-year-old male patient comes in today with complaints of occipital headache. Patient reports recent diagnosis for alpha gal. Patient appears nontoxic. Patient has a history of substance use disorder which he reports being 5 years clean at this time. Patient has been on buprenorphine before. Patient has a history of alpha gal, substance use disorder, GERD, and fever. Review of Systems 2 General: Reports: 10 or more systems reviewed and unremarkable except in HPI and below Neuro: Reports: headache(s) PFSH ED 2 PFSH: Medical History History of tick-borne relapsing fever Pericardial effusion History of MRSA infection Carpal tunnel syndrome, bilateral Nerve pain Anxiety and depression Surgical History History of appendectomy Family History Grandfather CAD (coronary artery disease) Lung disease TB Grandmother CAD (coronary artery disease) Diabetes Stroke Cancer Dementia Family/Other CAD (coronary artery disease) Other Heart disease Denies family history of Clotting disorder Chronic kidney disease (CKD) Suicide Anesthesia complication Bleeding disorder Social History Smoking and tobacco/nicotine status: former use of tobacco/nicotine Second hand smoke exposure: No Alcohol intake: unknown Substance/Drug Use: unknown Adopted: No Caregiver/support person: No Lives independently: Yes Household members: spouse Housing: House Marital status: service: No Do you think of yourself as: Straight/Heterosexual Current gender identity: Male Physical Exam 2 Const: COMMON NORMALS: alert HENMT: COMMON NORMALS: normocephalic HEAD & SCALP: normocephalic Neck/C-Spine: COMMON NORMALS: full ROM Resp: COMMON NORMALS: normal respiratory effort and clear to auscultation bilaterally AUSCULTATION: clear to auscultation bilaterally Cardio: COMMON NORMALS: regular rate and regular rhythm RATE: regular rate RHYTHM: regular rhythm GI: COMMON NORMALS: Soft to palpation and non-tender PALPATION: Yes Soft to palpation Back/Pelvis: COMMON NORMALS: thoracic and lumbar spine normal to inspection Extremity: COMMON NORMALS: normal to inspection Neuro: SENSORIUM/ORIENTATION: Yes alert Skin: COMMON NORMALS: turgor normal GENERAL SKIN EXAM: turgor normal Course 2 Vital Signs: Vital signs: Vital Signs Temperature 98 F 03/04/24 21:12 Pulse Rate 52 L 03/04/24 22:18 Respiratory Rate 16 03/04/24 22:18 Blood Pressure 135/96 03/04/24 22:18 Pulse Oximetry 98 03/04/24 22:18 Oxygen Delivery Me thod Room Air 03/04/24 22:18 MDM - Headache Medical Decision Making 31-year-old male patient comes in today for complaints of feeling fatigued and having a headache. Patient reports the headache is new for the last 3 to 4 days. Patient reports some fatigue for about 1 year. Patient appears nontoxic. Patient has a recent diagnosis of alpha gal. Patient also reports recently he has been scanned and has abdomen which was normal except for some constipation at the time. Patient sees Dr. Feng. On exam skin is warm and dry color is pink. Respirations are even. Bowel sounds are present throughout. No edema is noted. Differential diagnosis includes malingering, tick fever, anxiety about health, intracranial mass, intracranial hemorrhage, migraine headache. 2300, patient reports resolution of headache. CBC CMP was normal. CT of the head was normal. I do not have really any signs of significant illness of the patient today. I recommend patient follow-up with his primary care further evaluation of his fatigue and malaise. Patient agreed with plan and need for follow-up. Lab Data 03/04/24 21:40 03/04/24 21:[address] 03/04/24 21:17 IMPRESSION: No acute intracranial abnormality. Laboratory Results WBC 6.45 10^3/uL (3.29-11.43) 03/04/24 21:40 RBC 5.11 10^6/uL (3.85-5.65) 03/04/24 21:40 Hgb 15.80 g/dL (11.27-16.99) 03/04/24 21:40 Hct 44.9 % (37-53) 03/04/24 21:40 MCV 87.9 fl (82-101) 03/04/24 21:40 MCH 30.9 pg (27-33) 03/04/24 21:40 MCHC 35.2 g/dL (30-55) 03/04/24 21:40 RDW 12.5 % (12.1-15.1) 03/04/24 21:40 Plt Count 237 10^3/cmm (157-399) 03/04/24 21:40 MPV 10.3 fL (7.4-10.4) 03/04/24 21:40 Neut % (Auto) 50.9 % 03/04/24 21:40 Lymph % (Auto) 36.9 % 03/04/24 21:40 [place] % (Auto) 7.3 % 03/04/24 21:40 Eos % (Auto) 4.2 % 03/04/24 21:40 Baso % (Auto) 0.5 % 03/04/24 21:40 Neut # (Auto) 3.29 10^3/uL (1.8-7.7) 03/04/24 21:40 Lymph # (Auto) 2.4 10^3/uL (0.8-4.8) 03/04/24 21:40 [place] # (Auto) 0.5 10^3/uL (0.2-0.9) 03/04/24 21:40 Eos # (Auto) 0.3 10^3/uL (0.0-0.8) 03/04/24 21:40 Baso # (Auto) 0.0 10^3/uL (0.0-0.1) 03/04/24 21:40 Nucleated RBC % (auto) 0 % 03/04/24 21:40 Nucleated RBCs # 0.0 /100WBC 03/04/24 21:40 Sodium 141 mmol/L (136-145) 03/04/24 21:40 Potassium 3.6 mmol/L (3.5-5.1) 03/04/24 21:40 Chloride 104 mmol/L (98-107) 03/04/24 21:40 Carbon Dioxide 26 mmol/L (22-29) 03/04/24 21:40 Anion Gap 14.6 (5-19) 03/04/24 21:40 BUN 13 mg/dL (6-20) 03/04/24 21:40 Creatinine 0.9 mg/dL (0.7-1.2) 03/04/24 21:40 GFR Calculation 94.4 mL/min (90-130) 03/04/24 21:40 Glucose 115 mg/dL (65-115) 03/04/24 21:40 Calculated Osmolality 293 mOsm/kg (285-295) 03/04/24 21:40 Calcium 8.9 mg/dL (8.5-10.5) 03/04/24 21:40 Total Bilirubin 0.4 mg/dL (0.15-1.2) 03/04/24 21:40 AST 19 U/L (0-40) 03/04/24 21:40 ALT 12 U/L (0-41) 03/04/24 21:40 Alkaline Phosphatase 57 U/L (40-130) 03/04/24 21:40 Total Protein 7.1 g/dL (6.6-8.7) 03/04/24 21:40 Albumin 4.6 g/dL (3.5-5.2) 03/04/24 21:40 Globulin 2.5 g/dL (1.3-4.6) 03/04/24 21:40 All radiology interpretation(s) finalized by discharge Discharge Plan Discharge Patient Disposition: Home Clinical Impression: Malaise and fatigue Headache Qualifiers: Headache type: unspecified Headache chronicity pattern: acute headache I ntractability: not intractable Qualified Code(s): R51.9 - Headache, unspecified Condition: Stable Prescriptions: No Action buprenorphine HCl 8 mg tablet, sublingual 8 mg SUBLINGUAL Q7D BC Pain Relief 845-65 mg Powder In Packet 1 ea PO DAILY PRN (Reason: Migraine Headache) Discharge Orders: Discharge ED (Routine); Ordered 03/04/24 Ordered By: Basim Guerra Referrals: Kyleigh Acosta FNP-C [Primary Care Provider] - Discharge Diet: Usual diet Discharge Activity: Increase activity as tolerated Patient Instructions: Headache - Migraine (Adult) Activity Restrictions/Additional Instructions: Home and rest. Drink plenty of water and fluids. Activity as tolerated. Follow-up with primary care for continued evaluation regarding persistent fatigue and symptoms. Return to ER for new concerns. Coding Level of Care Code ED Detail Technician for Edilia Wall
[2024-03-04 22:08] LABS: Alanine Aminotransferase 12 U/L (0-41); Albumin Level 4.6 g/dL (3.5-5.2); Alkaline Phosphatase 57 U/L (40-130); Anion Gap 14.6 (5-19); Aspartate Amino Transferase 19 U/L (0-40); Blood Urea Nitrogen 13 mg/dL (6-20); Calcium 8.9 mg/dL (8.5-10.5); Carbon Dioxide 26 mmol/L (22-29); Chloride 104 mmol/L (98-107); Globulin 2.5 g/dL (1.3-4.6); Glomerular Filtration Rate 94.4 mL/min (90-130); Glucose 115 mg/dL (65-115); Osmolality Calculated 293 mOsm/kg (285-295); Potassium 3.6 mmol/L (3.5-5.1); Sodium 141 mmol/L (136-145); Total Bilirubin 0.4 mg/dL (0.15-1.2); Total Protein 7.1 g/dL (6.6-8.7)
[2024-03-04] MEDS: sodium chloride 0.9% 1,000 ML 999 ML IV (22:12)
[2024-03-04] MEDS: metoclopramide 5 mg/mL SDV 2 mL 10 MG IVP (22:14)
[2024-03-04] MEDS: dexamethasone 10 mg/mL INJ IVP (22:16)
[2024-03-04] MEDS: diphenhydrAMINE 50 mg/mL SDV 1mL IVP (22:16)
[2024-03-04 22:18] VITALS: BP 135/96; PULSE 52; RESP 16; O2SAT 98
[2024-03-04 23:19] VITALS: BP 125/80; PULSE 65; O2SAT 96
[2024-03-06 11:54] LABS: Lyme AB Screen <0.90 index
[2024-03-10 17:25] LABS: RMSF IGG NOT DETECTED; RMSF IGM NOT DETECTED
[2024-03-12 17:29] LABS: E. Chaffeensis AB IGG <1:64; E. Chaffeensis AB IGM <1:20
== END 2024-03-04 23:20 | disposition home or self-care (01) ==
PROVIDERS: Emergency Provider Nurse Practitioner Family; PCP Nurse Practitioner Family
DX: R51.9 Headache, unspecified (principal); R53.81 Other malaise; R53.83 Other fatigue; Z87.891 Personal history of nicotine dependence
CPT/HCPCS: 36415; 70450; 80053; 85025; 86618; 86666; 86757; 96361; 96374; 96375; 99285; J1100; J1200; J2765; J7030

== ENCOUNTER 2025-01-02 09:44 | Emergency (ER) | payer MEDICAID, SELFPAY ==
--- NOTE | 2025-01-02 09:55 | ECG_ITS ---
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 Measurements Intervals [place] Rate: 70 P: 76 PA: 158 QRS: 83 QRSD: 89 T: 67 QT: 380 QTc: 410 Interpretive Statements SINUS RHYTHM WITH SINUS ARRHYTHMIA POSSIBLE LEFT ATRIAL ENLARGEMENT [-0.1mV P-WAVE IN V1/V2] Compared to ECG 10/06/2023 10:33:05 No significant changes Electronically Signed On 01-02-2025 15:58:47 CDT by Charmaine Gasca M.D. [id number]
[2025-01-02 09:57] VITALS: BP 150/99; PULSE 91; RESP 18; TEMP 36.8; O2SAT 100; BMI 24.5
--- NOTE | 2025-01-02 10:04 | XR_ITS ---
WS: [id number] Exam: XR chest 1V portable [id number] Date/Time of Exam: 01/02/2025 10:07 AM Reason For Exam: cp Comparison 10/06/2023. Lungs are clear and fully inflated. Normal cardiomediastinal silhouette. No pleural effusions. Scattered calcified granulomas. XR/XR chest 1V portable [id number] IMPRESSION: 1. Negative chest.
[2025-01-02 10:29] LABS: Basophils % 0.3 %; Eosinophils # 0.2 10^3/uL (0.0-0.8); Eosinophils % 2.4 %; Hematocrit 45.5 % (37-53); Lymphocytes # 1.6 10^3/uL (0.8-4.8); Lymphocytes % 21.2 %; Mean Corpuscular HGB Conc 34.1 g/dL (30-55); Mean Corpuscular Hemoglobin 31.1 pg (27-33); Mean Corpuscular Volume 91.4 fl (82-101); Mean Platelet Volume 10.3 fL (7.4-10.4); Monocytes # 0.5 10^3/uL (0.2-0.9); Neutrophils # 5.22 10^3/uL (1.8-7.7); Nucleated Red Blood Cells % 0 %; Platelet Count 269 10^3/cmm (157-399); Red Blood Count 4.98 10^6/uL (3.85-5.65); Red Cell Distribution Width 12.4 % (12.1-15.1); White Blood Count 7.56 10^3/uL (3.29-11.43)
[2025-01-02 10:45] LABS: Troponin(5th) Baseline < 6 ng/L (0-15)
[2025-01-02 10:55] LABS: Alanine Aminotransferase 11 U/L (0-41); Albumin Level 4.6 g/dL (3.5-5.2); Alkaline Phosphatase 58 U/L (40-130); Anion Gap 13.6 (5-19); Aspartate Amino Transferase 13 U/L (0-40); Blood Urea Nitrogen 9 mg/dL (6-20); Calcium 9.7 mg/dL (8.5-10.5); Carbon Dioxide 31 mmol/L (22-29); Chloride 104 mmol/L (98-107); Creatinine Clr Calc Pharmacy 121.3813; Globulin 2.3 g/dL (1.3-4.6); Glomerular Filtration Rate 94.4 mL/min (90-130); Glucose 80 mg/dL (65-115); Lipase 68 U/L (13-60); Osmolality Calculated 296 mOsm/kg (285-295); Potassium 4.6 mmol/L (3.5-5.1); Sodium 144 mmol/L (136-145); Total Bilirubin 0.2 mg/dL (0.15-1.2); Total Protein 6.9 g/dL (6.6-8.7)
--- NOTE | 2025-01-02 11:12 | W.ED.CHESTPA ---
HPI - Chest Pain General: Chief Complaint: Chest Pain Stated Complaint: dr thompson, blurred vision, L side numbness, CP Time Seen by Provider: 01/02/25 10:59 Source: patient Mode of arrival: ambulatory Limitations: no limitations History of Present Illness: 39-year-old male states here he states been having chest pain along with headache and some blurred vision in his left eye. Patient states he has been having the symptoms off and on for 2 years since he had COVID. He states that its comes and goes states his headache is diffuse rates it a 3 out of 10 he denies any slurred speech no focal weakness he also has a sharp pain in his chest he rates a 4 out of 10. He states the symptoms have been going on for years. Associated symptoms: Deny abdominal pain, dyspnea, fever(s), nausea or vomiting Related Data Home Medications ?Medication ?Instructions ?Recorded ?Confirmed ibuprofen 200 mg tablet (Advil) 800 mg PO Q6H PRN Fever Or Pain 01/02/25 01/02/25 pantoprazole 40 mg tablet,delayed 40 mg PO DAILY 01/02/25 01/02/25 release testosterone cypionate 200 mg/mL 200 mg IM Q14D 01/02/25 01/02/25 intramuscular oil Allergies Allergy/AdvReac Type Severity Reaction Status Date / Time Alpha-Gal Allergy Unknown Verified 05/06/24 14:41 (Gofdqwnzd-Vltjw-7,3-Gala Review of Systems Const: Denies: fever(s), chills, body aches or change in appetite Eyes: Reports: blurry vision; Denies: eye discomfort ENMT: Denies: throat pain or dental pain Card: Reports: chest pain Resp: Denies: dyspnea GI: Denies: abdominal pain, nausea, vomiting or diarrhea Musc: Denies: neck pain or back pain Skin/Breast: Denies: rash Neuro: Reports: headache(s) PFS ED PFSH: Medical History History of tick-borne relapsing fever Pericardial effusion History of MRSA infection Carpal tunnel syndrome, bilateral Nerve pain Anxiety and depression Surgical History History of appendectomy Family History Grandfather CAD (coronary artery disease) Lung disease TB Grandmother CAD (coronary artery disease) Diabetes Stroke Cancer Dementia Family/Other CAD (coronary artery disease) Other Heart disease Denies family history of Clotting disorder Chronic kidney disease (CKD) Suicide Anesthesia complication Bleeding disorder Social History Smoking and tobacco/nicotine status: unknown if used tobacco/nicotine Second hand smoke exposure: No Alcohol intake: unknown Substance/Drug Use: unknown Adopted: No Caregiver/support person: No Lives independently: Yes Household members: spouse Housing: House Marital status: service: No Do you think of yourself as: Straight/Heterosexual Current gender identity: Male Physical Exam Const: COMMON NORMALS: no acute distress, patient oriented x3 and healthy appearing HENMT: COMMON NORMALS: normocephalic and atraumatic HEAD & SCALP: normocephalic and atraumatic Eye: COMMON NORMALS: Equal, round and reactive pupils present and EOMs intact bilaterally PUPIL: Yes Equal, round and reactive pupils present Neck/C-Spine: COMMON NORMALS: full ROM and supple Chest: COMMONS NORMALS: normal inspection of the chest Resp: COMMON NORMALS: normal respiratory effort, No retractions, No use of accessory muscles and clear to auscultation bilaterally AUSCULTATION: clear to auscultation bilaterally Cardio: COMMON NORMALS: regular rate, regular rhythm and No murmurs present (Cardio) RATE: regular rate RHYTHM: regular rhythm GI: COMMON NORMALS: non-tender Extremity: COMMON NORMALS: normal to inspection and full ROM Neuro: COMMON NORMALS: patient oriented x3, moves all extremities and no focal motor deficits CRANIAL NERVES: Yes CN normal except as noted SPEECH: speech normal GAIT: Yes Normal gait present MOTOR EXAM: 5/5 motor strength present throughout Psych: COMMON NORMALS: mental status grossly normal, Normal thought process present and cooperative THOUGHT PROCESS: Normal thought process present Skin: COMMON NORMALS: no rashes or lesions noted and no wounds GENERAL SKIN EXAM: no rashes or lesions noted Course Vital Signs: Vital signs: Vital Signs Temperature 98.2 F 01/02/25 09:57 Pulse Rate 62 01/02/25 12:30 Respiratory Rate 11 L 01/02/25 12:30 Blood Pressure 125/87 01/02/25 12:30 Pulse Oximetry 98 01/02/25 12:30 Oxygen Delivery Me thod Room Air 01/02/25 09:57 MDM - Chest Pain Medical Decision Making 39-year-old male having chest pain headaches it has been going on for years he is well-appearing here head CT blood works normal no signs of stroke or ACS he stable for discharge she is follow-up with PCP and return if worsening he understands agrees to plan Medical Records I reviewed the patient's medical records. Lab Data I reviewed the patient's lab results. 01/02/25 10:18 01/02/25 10:18 Radiology Impressions Chest X-Ray 01/02/25 10:04 IMPRESSION: 1. Negative chest. Head CT 01/02/25 11:53 IMPRESSION: 1. No evidence of intracranial hemorrhage or mass effect. 2. LEFT maxillary sinusitis 3. No acute intracranial findings. Laboratory Results WBC 7.56 10^3/uL (3.29-11.43) 01/02/25 10:18 RBC 4.98 10^6/uL (3.85-5.65) 01/02/25 10:18 Hgb 15.50 g/dL (11.27-16.99) 01/02/25 10:18 Hct 45.5 % (37-53) 01/02/25 10:18 MCV 91.4 fl (82-101) 01/02/25 10:18 MCH 31.1 pg (27-33) 01/02/25 10:18 MCHC 34.1 g/dL (30-55) 01/02/25 10:18 RDW 12.4 % (12.1-15.1) 01/02/25 10:18 Plt Count 269 10^3/cmm (157-399) 01/02/25 10:18 MPV 10.3 fL (7.4-10.4) 01/02/25 10:18 Neut % (Auto) 69.0 % 01/02/25 10:18 Lymph % (Auto) 21.2 % 01/02/25 10:18 [place] % (Auto) 7.0 % 01/02/25 10:18 Eos % (Auto) 2.4 % 01/02/25 10:18 Baso % (Auto) 0.3 % 01/02/25 10:18 Neut # (Auto) 5.22 10^3/uL (1.8-7.7) 01/02/25 10:18 Lymph # (Auto) 1.6 10^3/uL (0.8-4.8) 01/02/25 10:18 [place] # (Auto) 0.5 10^3/uL (0.2-0.9) 01/02/25 10:18 Eos # (Auto) 0.2 10^3/uL (0.0-0.8) 01/02/25 10:18 Baso # (Auto) 0.0 10^3/uL (0.0-0.1) 01/02/25 10:18 Nucleated RBC % (auto) 0 % 01/02/25 10:18 Nucleated RBCs # 0.0 /100WBC 01/02/25 10:18 Sodium 144 mmol/L (136-145) 01/02/25 10:18 Potassium 4.6 mmol/L (3.5-5.1) 01/02/25 10:18 Chloride 104 mmol/L (98-107) 01/02/25 10:18 Carbon Dioxide 31 mmol/L (22-29) H 01/02/25 10:18 Anion Gap 13.6 (5-19) 01/02/25 10:18 BUN 9 mg/dL (6-20) 01/02/25 10:18 Creatinine 0.9 mg/dL (0.7-1.2) 01/02/25 10:18 GFR Calculation 94.4 mL/min (90-130) 01/02/25 10:18 Glucose 80 mg/dL (65-115) 01/02/25 10:18 Calculated Osmolality 296 mOsm/kg (285-295) H 01/02/25 10:18 Calcium 9.7 mg/dL (8.5-10.5) 01/02/25 10:18 Total Bilirubin 0.2 mg/dL (0.15-1.2) 01/02/25 10:18 AST 13 U/L (0-40) 01/02/25 10:18 ALT 11 U/L (0-41) 01/02/25 10:18 Alkaline Phosphatase 58 U/L (40-130) 01/02/25 10:18 Troponin T Baseline < 6 ng/L (0-15) 01/02/25 10:18 Troponin T 120 Minute 6.00 ng/L (0-15) 01/02/25 12:08 Delta Troponin T 0.60187 ABS# (0-10) 01/02/25 12:08 Total Protein 6.9 g/dL (6.6-8.7) 01/02/25 10:18 Albumin 4.6 g/dL (3.5-5.2) 01/02/25 10:18 Globulin 2.3 g/dL (1.3-4.6) 01/02/25 10:18 Lipase 68 U/L (13-60) H 01/02/25 10:18 All radiology interpretation(s) finalized by discharge EKG Data EKG 1: I personally reviewed and interpreted this EKG as follows: EKG interpretation date: 01/02/25 EKG interpretation time: 11:46 Interpretation: nsr hr [address] elevation qrs 88 qtc 399 Discharge Plan Discharge Patient Disposition: Home Clinical Impression: Chest pain, Headache Condition: Stable Prescriptions: No Action pantoprazole 40 mg tablet,delayed release (DR/EC) 40 mg PO DAILY ibuprofen [Advil] 200 mg Tablet 800 mg PO Q6H PRN (Reason: Fever Or Pain) testosterone cypionate 200 mg/mL oil 200 mg IM Q14D Discharge Orders: Discharge ED (Routine); Ordered 01/02/25 Ordered By: Dominga Murray Referrals: Kyleigh Acosta FNP-C [Primary Care Provider] - 4-7 days Discharge Diet: Advance as tolerated Discharge Activity: Resume usual activity Patient Instructions: Chest Pain (ED), General Headache (ED) Print Language: Cape Verdean Coding Level of Care Code ED Insect Control Inspector for Edilia Wall
[2025-01-02 11:43] VITALS: BP 120/73; PULSE 66; RESP 12; O2SAT 99
--- NOTE | 2025-01-02 11:46 | ECG_ITS ---
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 Measurements Intervals [place] Rate: 62 P: 72 [place]: 169 QRS: 92 QRSD: 88 T: 64 QT: 394 QTc: 401 Interpretive Statements SINUS RHYTHM BORDERLINE RIGHT AXIS DEVIATION [QRS AXIS > 90] Compared to ECG 01/02/2025 09:55:32 Sinus arrhythmia no longer present Electronically Signed On 01-02-2025 21:31:49 CDT by Charmaine Gasca M.D. [email or web address] [id number]
--- NOTE | 2025-01-02 11:53 | CT_ITS ---
WS: [id number] CT HEAD TECHNIQUE: Noncontrast CT of the head obtained from the skullbase to the vertex. CLINICAL INFORMATION: boothe COMPARISON: 2023 DLP: 1065.[address] scans at [facility] use at least one of these dose optimization techniques: automated exposure control; mA and/or kV adjustment per patient size (includes targeted exams where dose is matched to clinical indication); or iterative reconstruction. FINDINGS: No evidence of intracranial hemorrhage or mass effect. Ventricular system and basal cisterns are patent. No extra-axial fluid collections. No evidence of mass or mass effect. Normal sullivan-white differentiation. LEFT maxillary sinusitis. Mastoid air cells are well aerated. CT/CT head wo con* [id number] IMPRESSION: 1. No evidence of intracranial hemorrhage or mass effect. 2. LEFT maxillary sinusitis 3. No acute intracranial findings.
[2025-01-02 12:00] VITALS: BP 120/73; PULSE 59; RESP 15; O2SAT 98
[2025-01-02 12:30] VITALS: BP 125/87; PULSE 62; RESP 11; O2SAT 98
[2025-01-02 13:00] VITALS: BP 119/76; PULSE 65; RESP 12; O2SAT 98
[2025-01-02 13:07] LABS: Troponin 5 2HR Delta 0.00001 ABS# (0-10)
[2025-01-02 13:25] VITALS: BP 115/66; PULSE 71; O2SAT 98
== END 2025-01-02 13:26 | disposition home or self-care (01) ==
PROVIDERS: Emergency Provider Emergency Medicine; PCP Nurse Practitioner Family
DX: R07.9 Chest pain, unspecified (principal); R51.9 Headache, unspecified
CPT/HCPCS: 36415; 70450; 71045; 80053; 83690; 84484; 85025; 93005; 99285